=== PATIENT | male | born 1985 | race Caucasian/White ===

== ENCOUNTER 2020-10-03 18:26 | Inpatient (IN) ==
[2020-10-03] MEDS ORDERED: MULTI-VITAMIN INFUSION 10 ML, THIAMINE HCL 100 MG, FOLIC ACID 1 MG in SODIUM CHLORIDE 0... IV ONE (19:10)
[2020-10-03] MEDS ORDERED: PROMETHAZINE 6.25 MG/50.25 ML BAG IV STA (19:10)
[2020-10-03] MEDS ORDERED: ONDANSETRON INJ 2 MG/ML 2 ML VIAL IV STA (19:10)
[2020-10-03] MEDS ORDERED: LORazepam 2 MG/4 ML VIAL IV STA (19:10)
[2020-10-03] MEDS ORDERED: SODIUM CHLORIDE 0.9% 500 ML IV SCH (19:15)
--- NOTE | 2020-10-03 19:21 | Emergency Department Note ---
Impression & Plan Alcohol withdrawal, Acute hyponatremia, Vomiting, Acute dehydration ED Provider Note NAME: VARUN GLEZ AGE: 35 SEX: M : 1985 ARRIVES VIA: Walk-In INFORMANT: [Patient][sister] ED PROVIDER(S): [Luiz Montilla MD] CHIEF COMPLAINT: Alcohol withdrawal HISTORY OF PRESENT ILLNESS: Patient is a 35-year-old male presents to the ED with what he thinks is alcohol withdrawal. The patient states that he last drank alcohol heavily toward the end of last week. It has been about 5 days of minimal oral intake including alcohol. He has not been able to eat. He has been vomiting. No diarrhea. There has been no fever, chills, cough or congestion. He has no chest pain or abdominal pain. Patient states that he feels washed out. He did have some alcohol before coming here as he wanted to prevent himself from withdrawing on the car ride. He does not feel drunk at this point. He typically drinks at least 20 ounces of liquor per day, sometimes he drinks more than that on the weekend. The patient believes he may have had a seizure once from alcohol withdrawal. He has never been hospitalized, he has always tried to detox on his own. The patient has fallen a few times, he did strike his head, there has been no brain imaging performed recently. Of note, the patient denies being suicidal. The patient's sister is at the bedside, she is concerned there may be some depression and mental health issues in addition to his alcohol abuse and misuse. REVIEW OF SYSTEMS: See HPI for pertinent positives and negatives. A total of ten systems were reviewed and were otherwise negative. PMHx/PSHx: See Below SOCIAL HISTORY: See Below. PHYSICAL EXAM: GENERAL: Patient is in no acute distress. HEENT: There is an old healing laceration to the left eyebrow. There is no bony step-off. Mucous membranes are somewhat dry. No scleral icterus. NECK: No stridor, no adenopathy, no meningismus, trachea is midline. LUNGS: Clear to auscultation bilaterally, no wheeze, no rhonchi, breath sounds equal. HEART: Tachycardic, regular rhythm, no murmurs. ABDOMEN: Soft, nontender, bowel sounds positive, no hernias, no peritonitis. EXTREMITIES: No cyanosis or edema, full range of motion of all the joints without pain or difficulty, no signs for acute trauma. NEUROLOGIC: Oriented x 3, no acute motor or sensory deficits, no focal weakness. SKIN: No rash, no jaundice, no diaphoresis. Psychiatric: Flat affect. Cooperative, denies being suicidal. DIFFERENTIAL DIAGNOSIS: Infection, dehydration, metabolic abnormality, alcohol withdrawal and alcohol abuse, hypo/hyperglycemia, electrolyte disturbance, anemia, hypoxia, cardiac sources, intracerebral event, toxicologic issues, stroke, TIA, as well as other pathologies. EMERGENCY DEPARTMENT COURSE/PROCEDURES: ECG: Indication was tachycardia. The ECG shows a sinus tachycardia with a rate of 102. There is an incomplete right bundle branch block. There are no PVCs. There is no ST elevation. The QTc is 437. Continuous Cardiac Monitoring: An order was placed for continuous cardiac monitoring. The monitor shows a rate of 124 with sinus tachycardia. Critical Care Note: I have personally spent 41 minutes of critical care time in the direct management of this patient. This includes bedside care, interpretation of diagnostic studies, and testing, discussion with consultants, patient, and family members, and other required patient management activities. This 41 minutes is in excess of all separately billable procedures. MEDICAL DECISION MAKING: There is no leukocytosis or concerning anemia. There is a normal platelet count. No coagulopathy. Renal panel testing shows a low sodium at 125. CO2 was low at 18. Chloride was low. No kidney failure. There was elevation to the liver enzymes, likely from his alcohol abuse. ECG showed a sinus tachycardia, no acute ischemia. Cardiac enzyme testing x1 was not consistent with acute cardiac injury. Urinalysis showed ketones, no evidence for infection. Urine tox was negative. Alcohol level returned elevated at 145. Covid and influenza testing returned negative. Chest film did not show mediastinal widening, pneumonia or pneumothorax. Brain CT showed no acute bleed or mass-effect. Patient received IV saline, 500 cc. He was given IV Zofran, IV Phenergan. He was given a nicotine patch. He received 2 mg of IV Ativan. He was given IV saline with multivitamins, thiamine and folate. The patient presents with alcohol withdrawal. He is dehydrated, he is hyponatremic. There is some elevation to his liver enzymes. He requires a hospital stay for his withdrawal and findings. I spoke to the patient, I talked with case management. The on-call hospitalist was consulted. Past Med/Surg History Medical History Alcohol abuse Anxiety Surgical History (Updated 10/03/20 @ 22:30 by Donna Valencia DO) No significant past surgical history Family History (Updated 10/03/20 @ 22:30 by Donna Valencia DO) Other Anxiety Social History Smoking Status: Current every day smoker Hx Alcohol Use: Yes Hx Substance Use: No Feels Safe at Home: Yes Allergies Allergies Allergy/AdvReac Type Severity Reaction Status Date / Time No Known Allergies Allergy Unverified 10/03/20 20:58 Home Meds Home Medications Medication Instructions Recorded Confirmed No Known Home Medications 10/03/20 10/03/20 Results & Data (ED) Vital Signs Vital Signs - 24 hr 10/03/20 18:40 10/03/20 19:21 10/03/20 20:01 Temperature 36.7 C Temperature Source Temporal Artery Scan Pulse Rate 126 H 108 H Pulse Rate from SpO2 Sensor 105 H Respiratory Rate 18 18 Respiratory Effort / Characteristics Non-Labored Respiratory Depth Normal Respiratory Pattern Regular Blood Pressure 176/125 H 153/106 H Blood Pressure Mean 142 121 Pulse Oximetry 97 98 97 Oxygen Delivery Method Room Air Room Air Sepsis Recent Fever Within 48 Hours No Sepsis New/Unexplained Change in Mental Status No Sepsis Action Taken by Nursing No Action Required 10/03/20 20:54 10/03/20 21:00 10/03/20 22:00 Temperature Temperature Source Pulse Rate 104 H 93 H 88 Pulse Rate from SpO2 Sensor 106 H 92 H 89 Respiratory Rate 18 21 20 Respiratory Effort / Characteristics Respiratory Depth Respiratory Pattern Blood Pressure 145/100 H 149/102 H 146/104 H Blood Pressure Mean 115 117 118 Pulse Oximetry 98 97 96 Oxygen Delivery Method Sepsis Recent Fever Within 48 Hours Sepsis New/Unexplained Change in Mental Status Sepsis Action Taken by Nursing 10/03/20 22:34 Temperature Temperature Source Pulse Rate 91 H Pulse Rate from SpO2 Sensor 93 H Respiratory Rate 20 Respiratory Effort / Characteristics Respiratory Depth Respiratory Pattern Blood Pressure 155/98 H Blood Pressure Mean 117 Pulse Oximetry 97 Oxygen Delivery Method Sepsis Recent Fever Within 48 Hours Sepsis New/Unexplained Change in Mental Status Sepsis Action Taken by Prison Medications Current Medication List: was personally reviewed by me Laboratory Data Attestation: I reviewed the patient's lab results. Result diagrams: 10/03/20 19:40 10/03/20 19:40 Lab Results 10/03/20 10/03/20 10/03/20 Range/Units 19:40 19:40 19:40 WBC (4.8-10.8) K/uL RBC (4.7-6.1) M/uL Hgb (14.0-18.0) g/dL Hct (42-52) % MCV (80-100) fL MCH (25-34) pg MCHC (32-36) g/dL RDW Std Deviation (36.4-46.3) fL RDW Coeff of Juan Manuel (11.5-14.5) % Plt Count (130-400) K/uL MPV (7.4-10.4) fL Immature Gran % (Auto) % Neut % (Auto) % Lymph % (Auto) % [place] % (Auto) % Eos % (Auto) % Baso % (Auto) % Neut # (Auto) (1.4-6.5) K/uL Lymph # (Auto) (1.2-3.4) K/uL [place] # (Auto) (0.11-0.59) K/uL Eos # (Auto) (0-0.5) K/uL Baso # (Auto) (0-0.2) K/uL Immature Gran # (Auto) (0.00-0.02) K/uL PT 9.8 (9.0-12.0) Seconds INR 1.0 (0.9-1.1) APTT 23.9 (21.0-31.0) Seconds PTT Ratio 0.9 Sodium 125 L (136-145) mmol/L Potassium 4.7 (3.5-5.1) mmol/L Chloride 87 L (98-107) mmol/L Carbon Dioxide 18 L (21-32) mmol/L Anion Gap 21.0 H (3-11) BUN 13 (7-18) mg/dl Creatinine 0.90 (0.6-1.4) mg/dl Est Cr Clr Drug Dosing 101.6 ml/min Est GFR ( Amer) 126.9 Est GFR (Non-Af Amer) 109.5 BUN/Creatinine Ratio 14.3 (10-20) Glucose 81 (70-99) mg/dl Calcium 9.8 (8.5-10.1) mg/dl Magnesium 1.9 (1.8-2.4) mg/dl Total Bilirubin 2.0 H (0.2-1) mg/dl AST 120 H (15-37) U/L ALT 102 H (12-78) U/L Alkaline Phosphatase 82 (45-117) U/L Total Creatine Kinase 390 H (39-308) U/L Troponin I < 0.015 (0-0.045) ng/ml Total Protein 8.4 H (6.4-8.2) gm/dl Albumin 4.9 (3.4-5.0) gm/dl Globulin 3.5 (2.5-4.0) gm/dl Albumin/Globulin Ratio 1.4 (0.9-2) TSH 2.230 (0.300-4.500) uIu/ml Urine Color Urine Appearance (Clear) Urine pH (4.5-7.5) Ur Specific [place] (1.000-1.030) Urine Protein (Negative) Urine Glucose (UA) (Negative) Urine Ketones (Negative) Urine Blood (Negative) Urine Nitrite (Negative) Urine Bilirubin (Negative) Urine Urobilinogen (Negative) Ur Leukocyte Esterase (Negative) Urine WBC (Auto) (0-5) /hpf Urine RBC (Auto) (0-4) /hpf U Hyaline Cast (Auto) (0-5) /lpf U Epithel Cells (Auto) (0-5) /lpf Urine Bacteria (Auto) (Negative) Salicylates Cancelled Urine Opiates Screen (Neg) Ur Methadone, Qual (Neg) Acetaminophen Cancelled Urine Barbiturates (Neg) Ur Phencyclidine (PCP) (Neg) U Amphetamin/Meth Scrn (Neg) MDMA (Ecstasy) Screen (Neg) U Benzodiazepines Scrn (Neg) Ur Cocaine Metabolite (Neg) U Marijuana (THC) Screen (Neg) Ethyl Alcohol mg/dL (0-3) mg/dl COVID-19 Eval Order SARS-CoV-2 (PCR) (Negative) Influenza Type A (PCR) (Neg) Influenza Type B (PCR) (Neg) RSV (RT-PCR) (Neg) 05/05/21 05/05/21 05/05/21 Range/Units 19:40 19:40 19:40 WBC 8.76 (4.8-10.8) K/uL RBC 4.22 L (4.7-6.1) M/uL Hgb 14.7 (14.0-18.0) g/dL Hct 39.5 L (42-52) % MCV 93.6 (80-100) fL MCH 34.8 H (25-34) pg MCHC 37.2 H (32-36) g/dL RDW Std Deviation 41.7 (36.4-46.3) fL RDW Coeff of Juan Manuel 12.2 (11.5-14.5) % Plt Count 276 (130-400) K/uL MPV 8.5 (7.4-10.4) fL Immature Gran % (Auto) 0.2 % Neut % (Auto) 85.5 % Lymph % (Auto) 8.4 % [place] % (Auto) 5.1 % Eos % (Auto) 0.3 % Baso % (Auto) 0.5 % Neut # (Auto) 7.48 H (1.4-6.5) K/uL Lymph # (Auto) 0.74 L (1.2-3.4) K/uL [place] # (Auto) 0.45 (0.11-0.59) K/uL Eos # (Auto) 0.03 (0-0.5) K/uL Baso # (Auto) 0.04 (0-0.2) K/uL Immature Gran # (Auto) 0.02 (0.00-0.02) K/uL PT (9.0-12.0) Seconds INR (0.9-1.1) APTT (21.0-31.0) Seconds PTT Ratio Sodium (136-145) mmol/L Potassium (3.5-5.1) mmol/L Chloride (98-107) mmol/L Carbon Dioxide (21-32) mmol/L Anion Gap (3-11) BUN (7-18) mg/dl Creatinine (0.6-1.4) mg/dl Est Cr Clr Drug Dosing ml/min Est GFR ( Amer) Est GFR (Non-Af Amer) BUN/Creatinine Ratio (10-20) Glucose (70-99) mg/dl Calcium (8.5-10.1) mg/dl Magnesium (1.8-2.4) mg/dl Total Bilirubin (0.2-1) mg/dl AST (15-37) U/L ALT (12-78) U/L Alkaline Phosphatase (45-117) U/L Total Creatine Kinase (39-308) U/L Troponin I (0-0.045) ng/ml Total Protein (6.4-8.2) gm/dl Albumin (3.4-5.0) gm/dl Globulin (2.5-4.0) gm/dl Albumin/Globulin Ratio (0.9-2) TSH (0.300-4.500) uIu/ml Urine Color [place] Urine Appearance Clear (Clear) Urine pH 5.0 (4.5-7.5) Ur Specific [place] 1.021 (1.000-1.030) Urine Protein 1+ H (Negative) Urine Glucose (UA) Negative (Negative) Urine Ketones 3+ H (Negative) Urine Blood Negative (Negative) Urine Nitrite Negative (Negative) Urine Bilirubin Negative (Negative) Urine Urobilinogen Negative (Negative) Ur Leukocyte Esterase Negative (Negative) Urine WBC (Auto) 1-5 (0-5) /hpf Urine RBC (Auto) 0-4 (0-4) /hpf U Hyaline Cast (Auto) 1-5 (0-5) /lpf U Epithel Cells (Auto) 5-10 H (0-5) /lpf Urine Bacteria (Auto) Negative (Negative) Salicylates Urine Opiates Screen Neg (Neg) Ur Methadone, Qual Neg (Neg) Acetaminophen Urine Barbiturates Neg (Neg) Ur Phencyclidine (PCP) Neg (Neg) U Amphetamin/Meth Scrn Neg (Neg) MDMA (Ecstasy) Screen Neg (Neg) U Benzodiazepines Scrn Neg (Neg) Ur Cocaine Metabolite Neg (Neg) U Marijuana (THC) Screen Neg (Neg) Ethyl Alcohol mg/dL (0-3) mg/dl COVID-19 Eval Order SARS-CoV-2 (PCR) (Negative) Influenza Type A (PCR) (Neg) Influenza Type B (PCR) (Neg) RSV (RT-PCR) (Neg) 10/03/20 10/03/20 10/03/20 Range/Units 19:56 20:50 20:50 WBC (4.8-10.8) K/uL RBC (4.7-6.1) M/uL Hgb (14.0-18.0) g/dL Hct (42-52) % MCV (80-100) fL MCH (25-34) pg MCHC (32-36) g/dL RDW Std Deviation (36.4-46.3) fL RDW Coeff of Juan Manuel (11.5-14.5) % Plt Count (130-400) K/uL MPV (7.4-10.4) fL Immature Gran % (Auto) % Neut % (Auto) % Lymph % (Auto) % [place] % (Auto) % Eos % (Auto) % Baso % (Auto) % Neut # (Auto) (1.4-6.5) K/uL Lymph # (Auto) (1.2-3.4) K/uL [place] # (Auto) (0.11-0.59) K/uL Eos # (Auto) (0-0.5) K/uL Baso # (Auto) (0-0.2) K/uL Immature Gran # (Auto) (0.00-0.02) K/uL PT (9.0-12.0) Seconds INR (0.9-1.1) APTT (21.0-31.0) Seconds PTT Ratio Sodium (136-145) mmol/L Potassium (3.5-5.1) mmol/L Chloride (98-107) mmol/L Carbon Dioxide (21-32) mmol/L Anion Gap (3-11) BUN (7-18) mg/dl Creatinine (0.6-1.4) mg/dl Est Cr Clr Drug Dosing ml/min Est GFR ( Amer) Est GFR (Non-Af Amer) BUN/Creatinine Ratio (10-20) Glucose (70-99) mg/dl Calcium (8.5-10.1) mg/dl Magnesium (1.8-2.4) mg/dl Total Bilirubin (0.2-1) mg/dl AST (15-37) U/L ALT (12-78) U/L Alkaline Phosphatase (45-117) U/L Total Creatine Kinase (39-308) U/L Troponin I (0-0.045) ng/ml Total Protein (6.4-8.2) gm/dl Albumin (3.4-5.0) gm/dl Globulin (2.5-4.0) gm/dl Albumin/Globulin Ratio (0.9-2) TSH (0.300-4.500) uIu/ml Urine Color Urine Appearance (Clear) Urine pH (4.5-7.5) Ur Specific [place] (1.000-1.030) Urine Protein (Negative) Urine Glucose (UA) (Negative) Urine Ketones (Negative) Urine Blood (Negative) Urine Nitrite (Negative) Urine Bilirubin (Negative) Urine Urobilinogen (Negative) Ur Leukocyte Esterase (Negative) Urine WBC (Auto) (0-5) /hpf Urine RBC (Auto) (0-4) /hpf U Hyaline Cast (Auto) (0-5) /lpf U Epithel Cells (Auto) (0-5) /lpf Urine Bacteria (Auto) (Negative) Salicylates Urine Opiates Screen (Neg) Ur Methadone, Qual (Neg) Acetaminophen Urine Barbiturates (Neg) Ur Phencyclidine (PCP) (Neg) U Amphetamin/Meth Scrn (Neg) MDMA (Ecstasy) Screen (Neg) U Benzodiazepines Scrn (Neg) Ur Cocaine Metabolite (Neg) U Marijuana (THC) Screen (Neg) Ethyl Alcohol mg/dL 145.8 H (0-3) mg/dl COVID-19 Eval Order [facility]sv at [facility] SARS-CoV-2 (PCR) NEGATIVE (Negative) Influenza Type A (PCR) Negative (Neg) Influenza Type B (PCR) Negative (Neg) RSV (RT-PCR) Negative (Neg) Administered Medications Discontinued Medications Sodium Chloride (Nss) 500 mls @ 999 mls/hr IV .Q31M ALINA Stop: 10/03/20 19:45 Last Infusion: 10/03/20 20:14 Dose: 0 mls/hr Documented by: [id number] Admin: 10/03/20 19:35 Dose: 999 mls/hr Documented by: [id number] Lorazepam (Ativan) 2 mg in 4 mls @ 4 mls/min IV NOW STA Stop: 10/03/20 19:11 Last Admin: 10/03/20 19:35 Dose: 4 mls/min Documented by: [id number] Promethazine HCl (Phenergan) 6.25 mg in 50.25 mls @ 201 mls/hr IV NOW STA Stop: 10/03/20 19:24 Last Infusion: 10/03/20 20:01 Dose: 0 mls/hr Documented by: [id number] Admin: 10/03/20 19:34 Dose: 201 mls/hr Documented by: [id number] Multivitamins 10 ml/ Thiamine HCl 100 mg/ Folic Acid 1 mg/Sodium Chloride 1,011.2 mls @ 1,011.2 mls/hr IV .Q1H ONE Stop: 10/03/20 20:09 Last Infusion: 10/03/20 21:00 Dose: 0 mls/hr Documented by: [id number] Admin: 10/03/20 20:00 Dose: 1,011.2 mls/hr Documented by: [id number] Ondansetron HCl (Ondansetron Inj 2 Mg/Ml 2 Ml Vial) 4 mg IV NOW STA Stop: 10/03/20 19:11 Last Admin: 10/03/20 19:34 Dose: 4 mg Documented by: [id number] Imaging Data Radiologist's Impression: Head CT 10/03/20 19:10 CT head/brain wo con CLINICAL HISTORY: 35 years-old Male with falling, hit head. Acute head injury status post fall TECHNIQUE: Multiple axial CT images of the head were obtained without contrast. A dose lowering technique was utilized adhering to the principles of ALARA. CT DOSE: 1074.96 mGy.cm COMPARISON: None. FINDINGS: Motion degraded exam. The study was then repeated which was also motion degraded. No acute intracranial hemorrhage, midline shift, intracranial mass, hydrocephalus, territorial ischemia or abnormal extra-axial collection. The calvarium is intact. Mastoid air cells are clear. Mild mucosal thickening of the ethmoid sinuses. IMPRESSION: Motion degraded exam. No acute intracranial abnormality. ACT 112: Negative or not required by law. The above report was generated using voice recognition software. It may contain grammatical, syntax or spelling errors. Electronically signed by: Huey Lynn M.D. 10/03/2020 9:06 PM Chest X-Ray 10/03/20 19:11 XR chest 1V portable HISTORY: 35 years-old Male weakness acute weakness COMPARISON: None TECHNIQUE: Portable AP view of the chest FINDINGS: Cardiomediastinal and hilar silhouettes are within normal limits. There is no pneumothorax, pleural effusion, airspace consolidation or overt pulmonary edema. Bones of the chest appear grossly intact. IMPRESSION: No acute process. ACT 112: Negative or not required by law. The above report was generated using voice recognition software. It may contain grammatical, syntax or spelling errors. Electronically signed by: Huey Lynn M.D. 10/03/2020 7:59 PM Head Trauma GCS Score: 15 Discharge Plan Visit Data Chief Complaint: Alcohol Withdrawal Stated Complaint: DEHYDRATED, NOT EATING, FALL, ALCOHOL WITHDRAW ED Provider: Luiz Montilla Discharge Problem: Alcohol withdrawal, Acute hyponatremia, Vomiting, Acute dehydration Patient Disposition: Admitted As Inpatient Condition: Fair Forms Stand Alone Forms: [facility] [employer], Suicide Prevention Resources Prescriptions Prescriptions: No Action No Known Home Medications RF: 0 Referrals Referrals: PCP,NO [Primary Care Provider] - Discharge Problem: Alcohol withdrawal Qualifiers: Complication of substance-induced condition: uncomplicated Qualified Code(s): F10.230 - Alcohol dependence with withdrawal, uncomplicated Vomiting Qualifiers: Vomiting type: unspecified Vomiting Intractability: non-intractable Nausea presence: with nausea Qualified Code(s): R11.2 - Nausea with vomiting, unspecified
[2020-10-03 19:59] LABS: Basophils # (auto) 0.04 K/uL (0-0.2); Basophils % (auto) 0.5 %; Eosinophils # (auto) 0.03 K/uL (0-0.5); Eosinophils % (auto) 0.3 %; Hematocrit (blood only) 39.5 % (42-52); Hemoglobin 14.7 g/dL (14.0-18.0); Immature Granulocytes # (auto) 0.02 K/uL (0.00-0.02); Immature Granulocytes % (auto) 0.2 %; Lymphocytes # (auto) 0.74 K/uL (1.2-3.4); Lymphocytes % (auto) 8.4 %; Mean Corpuscular Hemoglobin 34.8 pg (25-34); Mean Corpuscular Hgb Conc 37.2 g/dL (32-36); Mean Corpuscular Volume 93.6 fL (80-100); Mean Platelet Volume 8.5 fL (7.4-10.4); Monocytes # (auto) 0.45 K/uL (0.11-0.59); Monocytes % (auto) 5.1 %; Neutrophils # (auto) 7.48 K/uL (1.4-6.5); Neutrophils % (auto) 85.5 %; Platelet Count 276 K/uL (130-400); RDW Coefficient of Variation 12.2 % (11.5-14.5); RDW Standard Deviation 41.7 fL (36.4-46.3); Red Blood Count 4.22 M/uL (4.7-6.1); White Blood Count 8.76 K/uL (4.8-10.8)
--- NOTE | 2020-10-03 20:00 | XRay Report ---
XR chest 1V portable HISTORY: 35 years-old Male weakness acute weakness COMPARISON: None TECHNIQUE: Portable AP view of the chest FINDINGS: Cardiomediastinal and hilar silhouettes are within normal limits. There is no pneumothorax, pleural e ffusion, airspace consolidation or overt pulmonary edema. Bones of the chest appear grossly intact. IMPRESSION: No acute process. ACT 112: Negative or not required by law. The above report was generated using voice recognition software. It may contain grammatical, syntax o r spelling errors. Electronically signed by: Huey Lynn M.D. 10/03/2020 7:59 PM
[2020-10-03 20:13] LABS: Partial Thromboplastin Ratio 0.9; Partial Thromboplastin Time 23.9 Seconds (21.0-31.0); Prothrombin Time 9.8 Seconds (9.0-12.0)
[2020-10-03 20:15] LABS: Appearance Urine Clear (Clear); Bacteria Urine Automated Negative (Negative); Bilirubin Urine Negative (Negative); Blood Urine Negative (Negative); Color Urine Orange; Glucose Urine UA Negative (Negative); Ketones Urine 3+ (Negative); Leukocyte Esterase Urine Negative (Negative); Nitrite Urine Negative (Negative); Protein Urine 1+ (Negative); RBC Urine Automated 0-4 /hpf (0-4); Specific Gravity Urine 1.021 (1.000-1.030); Urobilinogen Urine Negative (Negative)
[2020-10-03 20:19] LABS: Alanine Aminotransferase 102 U/L (12-78); Albumin Level 4.9 gm/dl (3.4-5.0); Aspartate Aminotransferase 120 U/L (15-37); BUN Creatinine Ratio 14.3 (10-20); Blood Urea Nitrogen 13 mg/dl (7-18); Calcium 9.8 mg/dl (8.5-10.1); Carbon Dioxide 18 mmol/L (21-32); Chloride 87 mmol/L (98-107); Creatinine Clr Calc Pharmacy 101.6 ml/min; Est GFR (African American) 126.9; Est GFR (Non-African American) 109.5; Glucose 81 mg/dl (70-99); Magnesium 1.9 mg/dl (1.8-2.4); Potassium 4.7 mmol/L (3.5-5.1); Sodium 125 mmol/L (136-145)
[2020-10-03 20:29] LABS: Albumin Globulin Ratio 1.4 (0.9-2); Alkaline Phosphatase 82 U/L (45-117); Creatine Kinase 390 U/L (39-308); Globulin 3.5 gm/dl (2.5-4.0); Total Protein 8.4 gm/dl (6.4-8.2); Troponin I < 0.015 ng/ml (0-0.045)
[2020-10-03 20:40] LABS: Amphetamines+Metham, Urine Neg (Neg); Barbiturates, Urine Neg (Neg); Benzodiazepine, Urine Neg (Neg); Cocaine, Urine Neg (Neg); MDMA (Ecstacy), Urine Neg (Neg); Methadone, Urine Neg (Neg); Opiate, Urine Neg (Neg); Phencyclidine, Urine Neg (Neg)
--- NOTE | 2020-10-03 21:07 | CT Scan Report ---
CT head/brain wo con CLINICAL HISTORY: 35 years-old Male with falling, hit head. Acute head injury status post fall TECHNIQUE: Multiple axial CT images of the head were obtained without contrast. A dose lowering tech nique was utilized adhering to the principles of ALARA. CT DOSE: 1074.96 mGy.cm COMPARISON: None. FINDINGS: Motion degraded exam. The study was then repeated which was also motion degraded. No acute intracrani al hemorrhage, midline shift, intracranial mass, hydrocephalus, territorial ischemia or abnormal extr a-axial collection. The calvarium is intact. Mastoid air cells are clear. Mild mucosal thickening of the ethmoid sinuses . IMPRESSION: Motion degraded exam. No acute intracranial abnormality. ACT 112: Negative or not required by law. The above report was generated using voice recognition software. It may contain grammatical, syntax o r spelling errors. Electronically signed by: Huey Lynn M.D. 10/03/2020 9:06 PM
[2020-10-03] MEDS ORDERED: NICOTINE 21 MG/24 HR TDSY TD STA (21:29)
[2020-10-03 21:44] LABS: Influenza A virus by PCR Negative (Neg); Influenza B virus by PCR Negative (Neg); RSV by PCR Negative (Neg); SARS CoV2 RNA(COVID-19) InHosp NEGATIVE (Negative)
--- NOTE | 2020-10-03 22:15 | History & Physical Report ---
Date of Service October 03, 2020 Assessment & Plan (1) Alcohol withdrawal: 35yo C male with longstanding history of heavy EtOH consumption, appx 20 oz of liquor daily during the week and 40 oz daily on weekends, last drink yesterday 10/02/20 presenting for detoxification, concern for EtOH withdrawal. Patient reports feeling tremulous, no seizures. Tachycardic on arrival with HR of 126, Hypertensive to 176/125. He was administered a banana bag x 1L in the ER and Ativan 2mg IV. -Admit to PCU, continuous cardiac monitoring -Administer Valium 10mg PO x 1 to assist with withdrawal symptoms. 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 Patient appears mildly hypovolemic -Check urine and serum osm -Check urine Na -NSS x 500mL given in ER -Repeat BMP on arrival to floor -NSS at 100mL/hr x 2 liters Present on Admission?: Yes (3) Elevated LFTs: Most likely secondary to EtOH use. INR and coags are WNL. No need for steroids -Repeat LFTs in AM, consider imaging if worsened Present on Admission?: Yes (4) Anxiety: Patient reports longstanding personal history of what sounds to be generalized anxiety disorder. He has a strong family history of anxiety as well. He has been on Sertraline in the past as well as another agent that "started with an F" that wasn't helpful. -Management of underlying anxiety will hopefully assist in maintaining sobriety -Psychiatry consultation appreciated F/E/N- NSS at 100mL/hr x 2 liters, electrolytes WNL, NPO for now. Nicotine patch. Ppx - Low risk for DVT - encourage ambulation as tolerated Code - Full per discussion with patient Dispo - Admit to PCU Present on Admission?: Yes History of Present Illness Chief Complaint: EtOH withdrawal Primary Care Provider: NO PCP Tyrell Geiger is a 35yo male with history of EtOH abuse use presenting for detoxification and concerns for withdrawal. Patient has been drinking heavily for the past 10 years. He reports consuming approximately 20 oz of hard liquor daily during the week and approximately 40 oz of liquor daily during the weekend. He has been binging over the last four days but ran out of alcohol yesterday. He has not eaten anything x 5 days and has had ongoing nausea and dry heaving, po intolerance. He has been feeling slightly tremulous and weak. No seizures. Patient lives in the [place] area. His family recently held an intervention for him and encouraged him to seek medical attention. He was agreeable so his family picked him up from [place] today. He drank a small amount of alcohol on the drive, otherwise, last drink was yesterday. Patient states he has a history of generalized anxiety. He has taken Sertraline and one other medication in the past (starts with an "F" but couldn't remember name). He is , father of 3 sons. Per collateral information there has been a lot of family stress caused by his drinking. His and children are currently living with family members. No additional complaints, specifically, no fever/chills/chest pain/palpitations ER Course: Banana bag, Ativan 2mg, Zofran 4mg, Phenergan 6.25mg, NSS Allergies Allergy/AdvReac Type Severity Reaction Status Date / Time No Known Allergies Allergy Unverified 10/03/20 20:58 Home Medications Medication Instructions Recorded Confirmed Type No Known Home Medications 10/03/20 10/03/20 History Past Med/Surg History Medical History (Updated 10/03/20 @ 22:35 by Donna Valencia DO) Alcohol abuse Anxiety Surgical History (Updated 10/03/20 @ 22:30 by Donna Valencia DO) No significant past surgical history Family History (Updated 10/03/20 @ 22:30 by Donna Valencia DO) Other Anxiety Social History (Updated 10/03/20 @ 22:31 by Donna Valencia DO) Smoking Status: Current every day smoker Hx Alcohol Use: Yes Hx Substance Use: No Feels Safe at Home: Yes Review of Systems Review of Systems: All systems reviewed & are unremarkable except as noted in HPI & below Physical Exam Physical Exam: General: patient resting comfortably, NAD, non-toxic in appearance, AA&O x 4, mildly tremulous Skin: warm, dry, intact, no rashes or lesions HEENT: NC/AT, PERRL, EOMI, anicteric sclera, conjunctiva without injection, external ear normal to inspection and nontender, nares patent, moist mucus membranes, dentition intact, no oropharyngeal lesions, neck supple, trachea midline, no LAD, no thyromegaly, no JVD Heart: +S1/S2, regular, no m/r/g Lungs: equal air entry bilaterally, no rales/rhonchi/wheezes Abd: +BS, soft, NT/ND, no masses/organomegaly/ascites Ext: warm, 2+ pulses in UE/LE bilaterally, no clubbing/cyanosis or edema Neuro: nonfocal, patient AA&O x 4, speech intact, no facial droop, moving all extremities on command with equal strength 5/5 Results & Data Results & Data ([facility]) Vital Signs (Past 12 Hours) Vital Signs Temp Pulse Resp BP Pulse Ox 10/03/20 21:00 93 H 21 149/102 H 97 10/03/20 20:54 104 H 18 145/100 H 98 10/03/20 20:01 108 H 18 153/106 H 97 10/03/20 19:21 98 10/03/20 18:40 36.7 C 126 H 18 176/125 H 97 Laboratory Results Lab Results 10/03/20 10/03/20 10/03/20 Range/Units 19:40 19:40 19:40 WBC (4.8-10.8) K/uL RBC (4.7-6.1) M/uL Hgb (14.0-18.0) g/dL Hct (42-52) % MCV (80-100) fL MCH (25-34) pg MCHC (32-36) g/dL RDW Std Deviation (36.4-46.3) fL RDW Coeff of Juan Manuel (11.5-14.5) % Plt Count (130-400) K/uL MPV (7.4-10.4) fL Immature Gran % (Auto) % Neut % (Auto) % Lymph % (Auto) % Gentry % (Auto) % Eos % (Auto) % Baso % (Auto) % Neut # (Auto) (1.4-6.5) K/uL Lymph # (Auto) (1.2-3.4) K/uL Gentry # (Auto) (0.11-0.59) K/uL Eos # (Auto) (0-0.5) K/uL Baso # (Auto) (0-0.2) K/uL Immature Gran # (Auto) (0.00-0.02) K/uL PT 9.8 (9.0-12.0) Seconds INR 1.0 (0.9-1.1) APTT 23.9 (21.0-31.0) Seconds PTT Ratio 0.9 Sodium 125 L (136-145) mmol/L Potassium 4.7 (3.5-5.1) mmol/L Chloride 87 L (98-107) mmol/L Carbon Dioxide 18 L (21-32) mmol/L Anion Gap 21.0 H (3-11) BUN 13 (7-18) mg/dl Creatinine 0.90 (0.6-1.4) mg/dl Est Cr Clr Drug Dosing 101.6 ml/min Est GFR ( Amer) 126.9 Est GFR (Non-Af Amer) 109.5 BUN/Creatinine Ratio 14.3 (10-20) Glucose 81 (70-99) mg/dl Calcium 9.8 (8.5-10.1) mg/dl Magnesium 1.9 (1.8-2.4) mg/dl Total Bilirubin 2.0 H (0.2-1) mg/dl AST 120 H (15-37) U/L ALT 102 H (12-78) U/L Alkaline Phosphatase 82 (45-117) U/L Total Creatine Kinase 390 H (39-308) U/L Troponin I < 0.015 (0-0.045) ng/ml Total Protein 8.4 H (6.4-8.2) gm/dl Albumin 4.9 (3.4-5.0) gm/dl Globulin 3.5 (2.5-4.0) gm/dl Albumin/Globulin Ratio 1.4 (0.9-2) TSH 2.230 (0.300-4.500) uIu/ml Urine Color Urine Appearance (Clear) Urine pH (4.5-7.5) Ur Specific Nicholson (1.000-1.030) Urine Protein (Negative) Urine Glucose (UA) (Negative) Urine Ketones (Negative) Urine Blood (Negative) Urine Nitrite (Negative) Urine Bilirubin (Negative) Urine Urobilinogen (Negative) Ur Leukocyte Esterase (Negative) Urine WBC (Auto) (0-5) /hpf Urine RBC (Auto) (0-4) /hpf U Hyaline Cast (Auto) (0-5) /lpf U Epithel Cells (Auto) (0-5) /lpf Urine Bacteria (Auto) (Negative) Salicylates Cancelled Urine Opiates Screen (Neg) Ur Methadone, Qual (Neg) Acetaminophen Cancelled Urine Barbiturates (Neg) Ur Phencyclidine (PCP) (Neg) U Amphetamin/Meth Scrn (Neg) MDMA (Ecstasy) Screen (Neg) U Benzodiazepines Scrn (Neg) Ur Cocaine Metabolite (Neg) U Marijuana (THC) Screen (Neg) Ethyl Alcohol mg/dL (0-3) mg/dl COVID-19 Eval Order SARS-CoV-2 (PCR) (Negative) Influenza Type A (PCR) (Neg) Influenza Type B (PCR) (Neg) RSV (RT-PCR) (Neg) 10/03/20 10/03/20 10/03/20 Range/Units 19:40 19:40 19:40 WBC 8.76 (4.8-10.8) K/uL RBC 4.22 L (4.7-6.1) M/uL Hgb 14.7 (14.0-18.0) g/dL Hct 39.5 L (42-52) % MCV 93.6 (80-100) fL MCH 34.8 H (25-34) pg MCHC 37.2 H (32-36) g/dL RDW Std Deviation 41.7 (36.4-46.3) fL RDW Coeff of Juan Manuel 12.2 (11.5-14.5) % Plt Count 276 (130-400) K/uL MPV 8.5 (7.4-10.4) fL Immature Gran % (Auto) 0.2 % Neut % (Auto) 85.5 % Lymph % (Auto) 8.4 % Gentry % (Auto) 5.1 % Eos % (Auto) 0.3 % Baso % (Auto) 0.5 % Neut # (Auto) 7.48 H (1.4-6.5) K/uL Lymph # (Auto) 0.74 L (1.2-3.4) K/uL Gentry # (Auto) 0.45 (0.11-0.59) K/uL Eos # (Auto) 0.03 (0-0.5) K/uL Baso # (Auto) 0.04 (0-0.2) K/uL Immature Gran # (Auto) 0.02 (0.00-0.02) K/uL PT (9.0-12.0) Seconds INR (0.9-1.1) APTT (21.0-31.0) Seconds PTT Ratio Sodium (136-145) mmol/L Potassium (3.5-5.1) mmol/L Chloride (98-107) mmol/L Carbon Dioxide (21-32) mmol/L Anion Gap (3-11) BUN (7-18) mg/dl Creatinine (0.6-1.4) mg/dl Est Cr Clr Drug Dosing ml/min Est GFR ( Amer) Est GFR (Non-Af Amer) BUN/Creatinine Ratio (10-20) Glucose (70-99) mg/dl Calcium (8.5-10.1) mg/dl Magnesium (1.8-2.4) mg/dl Total Bilirubin (0.2-1) mg/dl AST (15-37) U/L ALT (12-78) U/L Alkaline Phosphatase (45-117) U/L Total Creatine Kinase (39-308) U/L Troponin I (0-0.045) ng/ml Total Protein (6.4-8.2) gm/dl Albumin (3.4-5.0) gm/dl Globulin (2.5-4.0) gm/dl Albumin/Globulin Ratio (0.9-2) TSH (0.300-4.500) uIu/ml Urine Color Curry Urine Appearance Clear (Clear) Urine pH 5.0 (4.5-7.5) Ur Specific Nicholson 1.021 (1.000-1.030) Urine Protein 1+ H (Negative) Urine Glucose (UA) Negative (Negative) Urine Ketones 3+ H (Negative) Urine Blood Negative (Negative) Urine Nitrite Negative (Negative) Urine Bilirubin Negative (Negative) Urine Urobilinogen Negative (Negative) Ur Leukocyte Esterase Negative (Negative) Urine WBC (Auto) 1-5 (0-5) /hpf Urine RBC (Auto) 0-4 (0-4) /hpf U Hyaline Cast (Auto) 1-5 (0-5) /lpf U Epithel Cells (Auto) 5-10 H (0-5) /lpf Urine Bacteria (Auto) Negative (Negative) Salicylates Urine Opiates Screen Neg (Neg) Ur Methadone, Qual Neg (Neg) Acetaminophen Urine Barbiturates Neg (Neg) Ur Phencyclidine (PCP) Neg (Neg) U Amphetamin/Meth Scrn Neg (Neg) MDMA (Ecstasy) Screen Neg (Neg) U Benzodiazepines Scrn Neg (Neg) Ur Cocaine Metabolite Neg (Neg) U Marijuana (THC) Screen Neg (Neg) Ethyl Alcohol mg/dL (0-3) mg/dl COVID-19 Eval Order SARS-CoV-2 (PCR) (Negative) Influenza Type A (PCR) (Neg) Influenza Type B (PCR) (Neg) RSV (RT-PCR) (Neg) 10/03/20 10/03/20 10/03/20 Range/Units 19:56 20:50 20:50 WBC (4.8-10.8) K/uL RBC (4.7-6.1) M/uL Hgb (14.0-18.0) g/dL Hct (42-52) % MCV (80-100) fL MCH (25-34) pg MCHC (32-36) g/dL RDW Std Deviation (36.4-46.3) fL RDW Coeff of Juan Manuel (11.5-14.5) % Plt Count (130-400) K/uL MPV (7.4-10.4) fL Immature Gran % (Auto) % Neut % (Auto) % Lymph % (Auto) % Gentry % (Auto) % Eos % (Auto) % Baso % (Auto) % Neut # (Auto) (1.4-6.5) K/uL Lymph # (Auto) (1.2-3.4) K/uL Gentry # (Auto) (0.11-0.59) K/uL Eos # (Auto) (0-0.5) K/uL Baso # (Auto) (0-0.2) K/uL Immature Gran # (Auto) (0.00-0.02) K/uL PT (9.0-12.0) Seconds INR (0.9-1.1) APTT (21.0-31.0) Seconds PTT Ratio Sodium (136-145) mmol/L Potassium (3.5-5.1) mmol/L Chloride (98-107) mmol/L Carbon Dioxide (21-32) mmol/L Anion Gap (3-11) BUN (7-18) mg/dl Creatinine (0.6-1.4) mg/dl Est Cr Clr Drug Dosing ml/min Est GFR ( Amer) Est GFR (Non-Af Amer) BUN/Creatinine Ratio (10-20) Glucose (70-99) mg/dl Calcium (8.5-10.1) mg/dl Magnesium (1.8-2.4) mg/dl Total Bilirubin (0.2-1) mg/dl AST (15-37) U/L ALT (12-78) U/L Alkaline Phosphatase (45-117) U/L Total Creatine Kinase (39-308) U/L Troponin I (0-0.045) ng/ml Total Protein (6.4-8.2) gm/dl Albumin (3.4-5.0) gm/dl Globulin (2.5-4.0) gm/dl Albumin/Globulin Ratio (0.9-2) TSH (0.300-4.500) uIu/ml Urine Color Urine Appearance (Clear) Urine pH (4.5-7.5) Ur Specific Nicholson (1.000-1.030) Urine Protein (Negative) Urine Glucose (UA) (Negative) Urine Ketones (Negative) Urine Blood (Negative) Urine Nitrite (Negative) Urine Bilirubin (Negative) Urine Urobilinogen (Negative) Ur Leukocyte Esterase (Negative) Urine WBC (Auto) (0-5) /hpf Urine RBC (Auto) (0-4) /hpf U Hyaline Cast (Auto) (0-5) /lpf U Epithel Cells (Auto) (0-5) /lpf Urine Bacteria (Auto) (Negative) Salicylates Urine Opiates Screen (Neg) Ur Methadone, Qual (Neg) Acetaminophen Urine Barbiturates (Neg) Ur Phencyclidine (PCP) (Neg) U Amphetamin/Meth Scrn (Neg) MDMA (Ecstasy) Screen (Neg) U Benzodiazepines Scrn (Neg) Ur Cocaine Metabolite (Neg) U Marijuana (THC) Screen (Neg) Ethyl Alcohol mg/dL 145.8 H (0-3) mg/dl COVID-19 Eval Order [facility]FluRsv at [facility] SARS-CoV-2 (PCR) NEGATIVE (Negative) Influenza Type A (PCR) Negative (Neg) Influenza Type B (PCR) Negative (Neg) RSV (RT-PCR) Negative (Neg) Diagnostic Findings XR chest 1V portable HISTORY: 35 years-old Male weakness acute weakness COMPARISON: None TECHNIQUE: Portable AP view of the chest FINDINGS: Cardiomediastinal and hilar silhouettes are within normal limits. There is no pneumothorax, pleural effusion, airspace consolidation or overt pulmonary edema. Bones of the chest appear grossly intact. IMPRESSION: No acute process. ACT 112: Negative or not required by law. The above report was generated using voice recognition software. It may contain grammatical, syntax or spelling errors. Electronically signed by: Huey Lynn M.D. 10/03/2020 7:59 PM Dictated: 10/03/201952Transcribed: 10/03/201952 CT head/brain wo con CLINICAL HISTORY: 35 years-old Male with falling, hit head. Acute head injury status post fall TECHNIQUE: Multiple axial CT images of the head were obtained without contrast. A dose lowering technique was utilized adhering to the principles of ALARA. CT DOSE: 1074.96 mGy.cm COMPARISON: None. FINDINGS: Motion degraded exam. The study was then repeated which was also motion degraded. No acute intracranial hemorrhage, midline shift, intracranial mass, hydrocephalus, territorial ischemia or abnormal extra-axial collection. The calvarium is intact. Mastoid air cells are clear. Mild mucosal thickening of the ethmoid sinuses. IMPRESSION: Motion degraded exam. No acute intracranial abnormality. ACT 112: Negative or not required by law. The above report was generated using voice recognition software. It may contain grammatical, syntax or spelling errors. Electronically signed by: Huey Lynn M.D. 10/03/2020 9:06 PM Dictated: 10/03/202054Transcribed: 10/03/202054 ECG Additional Comments: EKG with ST at 102, normal axis, VB=583, FCG=201, WPa=919, incomplete RBBB, no acute ischemic changes PG Care Time/CCT Total # of Minutes Spent Total Time Spent with Patient: Total time spent is greater than 50% in coordination of care (as documented) at patient's floor/unit and/or counseling patient: Coding Level of Care Code 65286 Initial Inpt Care Lvl 3 Diagnoses Alcohol withdrawal F10.230 Complication of substance-induced condition: uncomplicated Hyponatremia E87.1 Elevated LFTs R79.89 Anxiety F41.9 (1) Alcohol withdrawal Complication of substance-induced condition: uncomplicated Qualified Code(s): F10.230 - Alcohol dependence with withdrawal, uncomplicated
[2020-10-03 23:32] LABS: BUN Creatinine Ratio 15.9 (10-20); Calcium 8.7 mg/dl (8.5-10.1); Creatinine Clr Calc Pharmacy 125.3 ml/min; Est GFR (African American) 138.3; Est GFR (Non-African American) 119.3; Potassium 4.4 mmol/L (3.5-5.1)
[2020-10-04] MEDS ORDERED: ATIVAN IV ALCOHOL WITHDRAWL IV PRN (00:36)
[2020-10-04] MEDS ORDERED: ONDANSETRON INJ 2 MG/ML 2 ML VIAL IV PRN (00:36)
[2020-10-04] MEDS ORDERED: LORazepam 3 MG/6 ML VIAL IV PRN (00:36)
[2020-10-04] MEDS ORDERED: LORazepam 2 MG/4 ML VIAL IV PRN (00:36)
[2020-10-04] MEDS ORDERED: LORazepam 1 MG/2 ML VIAL IV PRN (00:36)
[2020-10-04] MEDS ORDERED: diazePAM 5 MG TABLET PO STA (00:36)
[2020-10-04] MEDS ORDERED: DOCUSATE SODIUM 100 MG CAP PO PRN (00:36)
[2020-10-04 00:51] LABS: Phosphorus 2.9 mg/dl (2.5-4.9)
[2020-10-04] MEDS: SODIUM CHLORIDE 0.9% 1000ML 1,000 ML IV SCH ×2 (00:56→12:53)
[2020-10-04] MEDS ORDERED: NICOTINE 21 MG/24 HR TDSY TD SCH (02:15)
[2020-10-04] MEDS: THIAMINE HCL 100 MG TAB PO SCH ×2 (02:27→07:50)
[2020-10-04] MEDS: FOLIC ACID 1 MG TAB PO SCH ×2 (02:27→07:50)
[2020-10-04 06:56] LABS: Basophils # (auto) 0.02 K/uL (0-0.2); Basophils % (auto) 0.5 %; Eosinophils # (auto) 0.17 K/uL (0-0.5); Eosinophils % (auto) 4.2 %; Hematocrit (blood only) 35.1 % (42-52); Hemoglobin 12.4 g/dL (14.0-18.0); Immature Granulocytes # (auto) 0.01 K/uL (0.00-0.02); Immature Granulocytes % (auto) 0.2 %; Lymphocytes # (auto) 0.89 K/uL (1.2-3.4); Lymphocytes % (auto) 21.8 %; Mean Corpuscular Hemoglobin 33.6 pg (25-34); Mean Corpuscular Hgb Conc 35.3 g/dL (32-36); Mean Corpuscular Volume 95.1 fL (80-100); Mean Platelet Volume 8.6 fL (7.4-10.4); Monocytes # (auto) 0.29 K/uL (0.11-0.59); Monocytes % (auto) 7.1 %; Neutrophils # (auto) 2.71 K/uL (1.4-6.5); Neutrophils % (auto) 66.2 %; Platelet Count 191 K/uL (130-400); RDW Coefficient of Variation 12.3 % (11.5-14.5); RDW Standard Deviation 42.6 fL (36.4-46.3); Red Blood Count 3.69 M/uL (4.7-6.1); White Blood Count 4.09 K/uL (4.8-10.8)
[2020-10-04 07:33] LABS: BUN Creatinine Ratio 15.2 (10-20); Bilirubin Direct 0.4 mg/dl (0-0.2); Calcium 8.4 mg/dl (8.5-10.1); Creatinine Clr Calc Pharmacy 127.2 ml/min; Est GFR (African American) 134.6; Est GFR (Non-African American) 116.1; Potassium 4.3 mmol/L (3.5-5.1)
[2020-10-04 07:39] LABS: Total Protein 6.9 gm/dl (6.4-8.2)
[2020-10-04 07:57] LABS: Folate (Folic Acid) > 20.00 ng/ml (>5.38); Vitamin B12 696 pg/ml (193-986)
--- NOTE | 2020-10-04 08:03 | Electrocardiogram Report ---
Test Reason : Blood Pressure : / mmHG Vent. Rate : 102 BPM Atrial Rate : 102 BPM P-R Int : 140 ms QRS Dur : 106 ms QT Int : 336 ms P-R-T Axes : 070 056 064 degrees QTc Int : 437 ms Sinus tachycardia Left atrial enlargement Incomplete right bundle branch block Borderline ECG No previous ECGs available Confirmed by Blayne Levy ([id number]) on 10/04/2020 8:03:24 AM Referred By: REFERRED SELF Confirmed By:Blayne Levy
[2020-10-04] MEDS ORDERED: GABAPENTIN 1200MG ALCOHOL WITHDRAWAL LOAD PO STA (11:13)
[2020-10-04] MEDS ORDERED: GABAPENTIN 600 MG TAB PO ONE (11:13)
[2020-10-04] MEDS ORDERED: chlordiazePOXIDE HCl 25 MG CAP PO STA (11:34)
[2020-10-04] MEDS ORDERED: chlordiazePOXIDE HCl 25 MG CAP PO ONE (11:37)
--- NOTE | 2020-10-04 12:21 | Discharge Summary ---
Date of Service October 04, 2020 Admission HPI Per Admitting Provider Tyrell Geiger is a 35yo male with history of EtOH abuse use presenting for detoxification and concerns for withdrawal. Patient has been drinking heavily for the past 10 years. He reports consuming approximately 20 oz of hard liquor daily during the week and approximately 40 oz of liquor daily during the weekend. He has been binging over the last four days but ran out of alcohol yesterday. He has not eaten anything x 5 days and has had ongoing nausea and dry heaving, po intolerance. He has been feeling slightly tremulous and weak. No seizures. Patient lives in the [place] area. His family recently held an intervention for him and encouraged him to seek medical attention. He was agreeable so his family picked him up from [place] today. He drank a small amount of alcohol on the drive, otherwise, last drink was yesterday. Patient states he has a history of generalized anxiety. He has taken Sertraline and one other medication in the past (starts with an "F" but couldn't remember name). He is , father of 3 sons. Per collateral information there has been a lot of family stress caused by his drinking. His and children are currently living with family members. No additional complaints, specifically, no fever/chills/chest pain/palpitations ER Course: Banana bag, Ativan 2mg, Zofran 4mg, Phenergan 6.25mg, NSS Admission Exam Per Admitting Provider General: patient resting comfortably, NAD, non-toxic in appearance, AA&O x 4, mildly tremulous Skin: warm, dry, intact, no rashes or lesions HEENT: NC/AT, PERRL, EOMI, anicteric sclera, conjunctiva without injection, external ear normal to inspection and nontender, nares patent, moist mucus membranes, dentition intact, no oropharyngeal lesions, neck supple, trachea midline, no LAD, no thyromegaly, no JVD Heart: +S1/S2, regular, no m/r/g Lungs: equal air entry bilaterally, no rales/rhonchi/wheezes Abd: +BS, soft, NT/ND, no masses/organomegaly/ascites Ext: warm, 2+ pulses in UE/LE bilaterally, no clubbing/cyanosis or edema Neuro: nonfocal, patient AA&O x 4, speech intact, no facial droop, moving all extremities on command with equal strength 5/5 Principal Diagnosis Alcohol withdrawal Discharge Exam General: AA&O x 4, NAD HEENT: NC/AT, PERRL, EOMI, anicteric sclera, conjunctiva without injection Heart: +S1/S2, regular, no m/r/g Lungs: CTAB, no rales/rhonchi/wheezes Abd: +BS, soft, NT/ND Neuro: nonfocal, patient AA&O x 4, speech intact, no facial droop, moving all extremities, patient very tremulous Skin: warm, dry, intact, no rashes or lesions Discharge Data Allergies Allergy/AdvReac Type Severity Reaction Status Date / Time No Known Allergies Allergy Unverified 10/03/20 20:58 Consultations 10/03/20 21:29 ED Decision to Admit Stat Ordered Studies 10/03/20 19:10 CT head/brain wo con Stat Hospital Course (1) Alcohol withdrawal: 35yo male with longstanding history of heavy EtOH consumption, appx 20 oz of liquor daily during the week and 40 oz daily on weekends, last drink 10/02/20 presenting for detoxification, concern for EtOH withdrawal. Alcohol Withdrawal - Tachycardic on arrival with HR of 126, Hypertensive to 176/125. He was administered a banana bag x 1L in the ER and Ativan 2mg IV. -Valium 10mg PO x 1 on admission -Alcohol withdrawal protocol ordered -Thiamine daily ordered -Folic Acid daily ordered -Psychiatry consultation -- per psych liaison patient denying SI/HI, reporting that he has no underlying anxiety or depression. Only reports anxiousness after drinking. As such, psychiatry not recommending any changes in treatment. Recommended inpatient rehabilitation, which the patient was not agreeable to. -Patient decided to leave AGAINST MEDICAL ADVICE he was counseled on the very high risk of delirium tremens and the life-threatening nature of alcohol withdrawal. Patient was alert and oriented and expressed full understanding of this, but ultimately expressed that he felt he was over the most difficult part of withdrawal and that he would be safe at home. -Prescribed Librium taper and gabapentin 300 mg at bedtime Hyponatremia -Suspect secondary to EtOH/low solute consumption. Patient appears mildly hypovolemic -NSS x 500mL given in ER -Repeat BMP with improved sodium Elevated LFTs -Most likely secondary to EtOH use. INR and coags WNL Anxiety -On Sertraline in the past as well as another agent that "started with an F" that wasn't helpful. -Psychiatry consultation as above -Patient denying underlying anxiety, reporting only anxiety after drinking. Expresses that he wakes up feeling anxious after a night of drinking but as the day goes on he does not experience any anxiousness. He then starts to drink again in the evenings and the cycle resumes. Dispo -patient left AGAINST MEDICAL ADVICE (2) Acute hyponatremia: (3) Acute dehydration: Total Time Total Time Spent Total Time Spent (In Minutes): See attending attestation Discharge Plan Discharge Items Patient Disposition: Against Medical Advice Reason For Visit: ETOH DETOXIFICATION,HYPONATREMIA Condition on Discharge: Serious Follow-up/Referrals: PCP,NO [Primary Care Provider] - Addtl Management Psychologist Provider Instructions: Please diamond picker and continue librium taper and gabapentin as prescribed to help you with withdrawal symptoms. Should you have severe symptoms or seizure please return to emergency medical care at any time. Stand-Alone Forms: My [facility] Emay Soft[employer], Smoking Cessation Medications and DC Order Prescriptions: New gabapentin 300 mg capsule 300 mg PO HS 14 Days Qty: 14 RF: 0 chlordiazepoxide HCl 10 mg capsule See Rx Instructions .ROUTE .COMPLEX Qty: 14 RF: 0 Discharge Orders: Left Against Medical Advice (Routine); Ordered 10/04/20 Ordered By: Ildefonso Calvo Admission Data Admit Date/Time: 10/03/20 22:07 Attending Provider: Chayo Huntley Admit Provider: Donna Valencia Primary Care Provider: PCP,NO Other Providers: Donna Valencia Other Interventions: Discharge Summary Assessment (RN) Last Done: 10/04/20 11:54 Supervising Physician Co-Signing Physician Notes Resident Physician Supervision Note: I independently interviewed and examined the patient and verified the suarez history and physical, reviewed labs and image studies, discussed the case with the resident Dr. Parra and agree with the findings and care plan. Resident Activity Tracking Resident Involvement: Resident Care Provided Care Provided: Adult Hospital Medicine
[2020-10-04] MEDS ORDERED: GABAPENTIN 600 MG TAB PO SCH (17:14)
[2020-10-05] MEDS ORDERED: GABAPENTIN 600 MG TAB PO SCH (07:14)
[2020-10-06] MEDS ORDERED: GABAPENTIN 600 MG TAB PO SCH (11:14)
[2020-10-07] MEDS ORDERED: GABAPENTIN 600 MG TAB PO SCH (23:14)
== END 2020-10-04 13:30 | disposition left against medical advice (07) | DRG 894 ==
LOC: ED 18:26 → 2S 22:07 → SUATTDRO 22:07 → 2S 10-04 00:05
DX: F10.230 Alcohol dependence with withdrawal, uncomplicated; E86.0 Dehydration; F17.200 Nicotine dependence, unspecified, uncomplicated; F41.1 Generalized anxiety disorder; R79.89 Other specified abnormal findings of blood chemistry; E87.1 Hypo-osmolality and hyponatremia